=== PATIENT | female | born 1995 | race Caucasian/White ===

== ENCOUNTER 2019-10-27 02:20 | Inpatient (IN) | payer MEDICAID ==
[~2019-10-27] VITALS: Ht 170.2 cm; Wt 72.7 kg
[2019-10-27 02:43] LABS: AMPHET/METH SCREEN,URINE POSITIVE (NEGATIVE); BARBITURATE SCREEN, URINE NEGATIVE (NEGATIVE); BENZODIAZEPINES SCREEN,URINE NEGATIVE (NEGATIVE); CANNABINOID SCREEN,URINE POSITIVE (NEGATIVE); COCAINE SCREEN,URINE NEGATIVE (NEGATIVE); METHADONE SCREEN, URINE NEGATIVE (NEGATIVE); OPIATE SCREEN,URINE POSITIVE (NEGATIVE); PHENCYCLIDINE SCREEN,URINE NEGATIVE (NEGATIVE)
[2019-10-27] MEDS ORDERED: QUEtiapine FUMARATE 100 MG TABLET PO PRN (03:30)
[2019-10-27] MEDS ORDERED: ZOLPIDEM TARTRATE 10 MG TABLET PO PRN (03:30)
[2019-10-27 04:41] LABS: APPEARANCE,URINE TURBID (CLEAR); GLUCOSE, URINE (UA) NEGATIVE (NEGATIVE); KETONES,URINE NEGATIVE (NEGATIVE); LEUKOCYTE ESTERASE ,URINE SMALL (NEGATIVE); NITRATE,URINE NEGATIVE (NEGATIVE); OCCULT BLOOD,URINE NEGATIVE (NEGATIVE); PROTEIN,URINE TRACE (NEGATIVE)
[2019-10-27 04:42] LABS: BILIRUBIN,URINE PRELIM. POSITIVE (NEGATIVE)
[2019-10-27 04:44] LABS: BACTERIA,URINE Few /HPF (None Seen); RBC,URINE 0-2 /HPF (0-2); SQUAMOUS EPITHELIAL CELL,UR Many /LPF (None Seen)
[2019-10-27 04:45] LABS: AMORPHOUS SEDIMENT,UR Many /LPF (None Seen); CALCIUM OXALATE CRYSTALS,UR Moderate /LPF (None Seen)
[2019-10-27 08:53] VITALS: BP 109/79
[2019-10-27] MEDS ORDERED: LOPERAMIDE HCL 2 MG CAPSULE PO PRN (15:45)
[2019-10-27] MEDS ORDERED: TUBERCULIN, PURIFIED PROTEIN DERIVATIVE 5 TU/0.1 ML SYRINGE ID ONE (15:45)
[2019-10-27] MEDS ORDERED: OLANZapine 5 MG RAPDIS TABLET PO PRN (15:45)
[2019-10-27] MEDS ORDERED: GuaiFENesin/D-METHORPHAN [SUGAR-FREE] 200-20MG/10 ML SYRUP UDCUP PO PRN (15:45)
[2019-10-27] MEDS ORDERED: MAGNESIUM HYDROXIDE SUSPENSION 30 ML UDCUP PO PRN (15:45)
[2019-10-27] MEDS ORDERED: ACETAMINOPHEN 325 MG TABLET PO PRN (15:45)
[2019-10-27] MEDS ORDERED: MAG HYDROX/AL HYDROX/SIMETH ES 30 ML SUSPENSION UDCUP PO PRN (15:45)
[2019-10-27] MEDS ORDERED: PROMETHAZINE HCL 25 MG TABLET PO PRN (15:45)
[2019-10-27] MEDS ORDERED: HydrOXYzine PAMOATE 50 MG CAPSULE PO PRN (15:45)
[2019-10-27] MEDS: THIAMINE HCL 100 MG TABLET PO SCH (16:50)
[2019-10-27] MEDS: LORazepam 2 MG TABLET PO PRN (16:56)
[2019-10-27 16:57] VITALS: BP 123/55
[2019-10-27] MEDS: DIVALPROEX SODIUM 500 MG ER TABLET PO SCH (20:50)
[2019-10-27] MEDS ORDERED: OLANZapine 5 MG RAPDIS TABLET PO SCH (21:00)
[2019-10-28 05:05] VITALS: BP 120/65
[2019-10-28] MEDS: NALTREXONE HCL 50 MG TABLET PO SCH (08:50)
[2019-10-28] MEDS: FOLIC ACID 1 MG TABLET PO SCH (08:50)
[2019-10-28] MEDS: MULTIVITAMINS WITH MINERALS, THERAPEUTIC TABLET PO SCH (08:50)
[2019-10-28] MEDS: NITROFURANTOIN/NITROFURAN MAC 100 MG CAPSULE [MACROBID] PO SCH ×2 (08:50→16:30)
[2019-10-28] MEDS: THIAMINE HCL 100 MG TABLET PO SCH ×2 (08:50→16:30)
[2019-10-28 09:00] VITALS: BP 118/73
[2019-10-28] MEDS: LORazepam 2 MG TABLET PO PRN (16:35)
[2019-10-28] MEDS: DIVALPROEX SODIUM 500 MG ER TABLET PO SCH (20:33)
[2019-10-28] MEDS: OLANZapine 10 MG RAPDIS TABLET PO SCH (20:34)
[2019-10-29 05:51] VITALS: BP 116/62
[2019-10-29 08:12] LABS: BASOPHILS % (AUTO) 0.9 % (0.0-2.0); HEMATOCRIT 42.3 % (36-46); HEMOGLOBIN 13.8 g/dL (12.0-16.0); LYMPHOCYTES # (AUTO) 3.2 K/uL (1.0-4.8); LYMPHOCYTES % (AUTO) 39.9 % (22.0-44.0); MEAN CORPUSCULAR HEMOGLOBIN 28.4 pg (26.0-34.0); MEAN CORPUSCULAR HGB CONC 32.5 G/dL (31.0-37.0); MEAN CORPUSCULAR VOLUME 87 fL (80-100); MONOCYTES # (AUTO) 0.5 K/uL (0.1-1.0); MONOCYTES % (AUTO) 6.1 % (2.0-9.0); NEUTROPHILS # (AUTO) 4.1 K/uL (1.8-7.7); NEUTROPHILS % (AUTO) 50.1 % (40.0-70.0); PLATELET COUNT (AUTO) 231 K/uL (150-450); RED BLOOD CELL COUNT(AUTO) 4.84 MIL/uL (4.00-5.20); RED CELL DISTRIBUTION WIDTH 15.1 % (11.5-14.5)
[2019-10-29 08:27] LABS: HEMOGLOBIN A1C 5.2 % (3.8-5.6)
[2019-10-29] MEDS: FOLIC ACID 1 MG TABLET PO SCH (08:30)
[2019-10-29] MEDS: THIAMINE HCL 100 MG TABLET PO SCH ×2 (08:30→18:11)
[2019-10-29] MEDS: NITROFURANTOIN/NITROFURAN MAC 100 MG CAPSULE [MACROBID] PO SCH ×2 (08:31→18:09)
[2019-10-29] MEDS: MULTIVITAMINS WITH MINERALS, THERAPEUTIC TABLET PO SCH (08:31)
[2019-10-29] MEDS: NALTREXONE HCL 50 MG TABLET PO SCH (08:31)
[2019-10-29 08:37] LABS: ALANINE AMINOTRANSFERASE 19 U/L (12-78); ALBUMIN 3.5 g/dL (3.4-5.0); ALKALINE PHOSPHATASE 67 U/L (46-116); ANION GAP 8 mmol/L (8-16); ASPARTATE AMINOTRANSFERASE 13 U/L (15-37); BILIRUBIN,TOTAL 0.3 mg/dL (0.1-1.0); CALCIUM, TOTAL 9.1 mg/dL (8.8-10.5); CARBON DIOXIDE 27 mmol/L (22-29); CHLORIDE 104 mmol/L (98-107); CHOL/HDL RATIO 4.3 (3.9-5.7); CHOLESTEROL 169 mg/dL (131-200); GLOMERULAR FILTR. RATE CALC > 60 mL/min (>60); GLUCOSE,RANDOM 81 mg/dL (70-110); HCG,QUANTITATIVE < 1 mIU/mL (0-6); HDL CHOLESTEROL 39 mg/dL (40-60); LDL CHOL (CALC.) 115 mg/dL (0-130); POTASSIUM 4.2 mmol/L (3.5-5.1); SODIUM SERUM 139 mmol/L (136-145); TOTAL PROTEIN, SERUM 6.8 g/dL (6.4-8.2); TRIGLYCERIDES 76 mg/dL (15-150); UREA NITROGEN, BLOOD 12 mg/dL (7-18); VALPROIC ACID 71 mcg/mL (50-100)
[2019-10-29] MEDS ORDERED: DIVA500T52 PO (14:17)
[2019-10-29] MEDS ORDERED: OLAN10TA22 PO (14:17)
[2019-10-29] MEDS ORDERED: NALT50TA PO (14:17)
[2019-10-29 16:42] VITALS: BP 117/63
[2019-10-29] MEDS: DIVALPROEX SODIUM 500 MG ER TABLET PO SCH (21:17)
[2019-10-29] MEDS: OLANZapine 10 MG RAPDIS TABLET PO SCH (21:17)
[2019-10-30 03:19] VITALS: BP 102/68
[2019-10-30] MEDS: NALTREXONE HCL 50 MG TABLET PO SCH (08:23)
[2019-10-30] MEDS: THIAMINE HCL 100 MG TABLET PO SCH (08:23)
[2019-10-30] MEDS: NITROFURANTOIN/NITROFURAN MAC 100 MG CAPSULE [MACROBID] PO SCH (08:23)
[2019-10-30] MEDS: FOLIC ACID 1 MG TABLET PO SCH (08:23)
[2019-10-30] MEDS: MULTIVITAMINS WITH MINERALS, THERAPEUTIC TABLET PO SCH (08:23)
[2019-10-30] MEDS ORDERED: MACR100 PO (08:49)
== END 2019-10-30 10:14 | disposition home or self-care (01) | DRG 885 ==
LOC: EMS 02:20 → B3A 04:00
PROVIDERS: ADMIT Psychiatry & Neurology Psychiatry; ATTEND Psychiatry & Neurology Psychiatry
DX: F25.9 Schizoaffective disorder, unspecified (principal); G92 Toxic encephalopathy; N39.0 Urinary tract infection, site not specified; F41.9 Anxiety disorder, unspecified; F15.10 Other stimulant abuse, uncomplicated; F31.9 Bipolar disorder, unspecified; F12.90 Cannabis use, unspecified, uncomplicated; F17.200 Nicotine dependence, unspecified, uncomplicated; Z59.0 Homelessness; Z91.19 Patient's noncompliance with other medical treatment and regimen; T43.621A Poisoning by amphetamines, accidental (unintentional), initial encounter; T40.7X1A Poisoning by cannabis (derivatives), accidental (unintentional), initial encounter
CPT/HCPCS: 80074; 83036; 86592; G0480